=== PATIENT | female | born 1995 | race Caucasian/White ===

== ENCOUNTER 2020-01-25 06:40 | Emergency (ER) | payer BC ==
[2020-01-25] MEDS ORDERED: FAMOTIDINE 20 MG TABLET PO ONE (08:24)
[2020-01-25] MEDS ORDERED: ONDANSETRON 4 MG TAB.RAPDIS PO ONE (08:24)
--- NOTE | 2020-01-25 08:42 | ER Document Report ---
ED GI/ - General Chief Complaint: Nausea/Vomiting Stated Complaint: ABDOMINAL PAIN,VOMITING Time Seen by Provider: 01/25/20 08:17 Notes: CHIEF COMPLAINT: Nausea after taking doxycycline HPI: 24-year-old female presenting with nausea after taking doxycycline. States she developed discomfort in the upper abdomen after taking it on an empty stomach this morning with the discomfort radiating up into the chest. States she took her blood pressure at home it was elevated. No chest pain no abdominal pain at this time still with slight nausea. No shortness of breath. Patient states she had seen her CATALYST OPERATOR GASOLINE yesterday because she had been having some intermittent pelvic pain and abnormal vaginal bleeding over the last several weeks and he told her he was concerned about a pelvic infection and started her on the doxycycline. Took 1 dose last night 1 dose this morning. Did not have any issues with the dose last night. Patient does relate she did not eat prior to taking the medication today. She did not call her CATALYST OPERATOR GASOLINE about her symptoms ROS: See HPI - all other systems were reviewed and are otherwise negative Constitutional: no fever Eyes: no drainage, no blurred vision ENT: no runny nose, no sore throat Cardiovascular: + chest pain resolved Resp: no SOB, no cough GI: no vomiting, no diarrhea, + abdominal pain resolved : no dysuria Integumentary: no rash Allergy: no hives Musculoskeletal: no extremity pain or swelling Neurological: no numbness/tingling, no weakness MEDICATIONS: I agree with the patient medications as charted by the RN. ALLERGIES: I agree with the allergies as charted by the RN. PAST MEDICAL HISTORY/PAST SURGICAL HISTORY: Reviewed and agree as charted by RN. SOCIAL HISTORY: Reviewed and agree as charted by RN. FAMILY HISTORY: No significant familial comorbid conditions directly related to patient complaint EXAM: Reviewed vital signs as charted by RN. CONSTITUTIONAL: Alert and oriented and responds appropriately to questions. Well-appearing; well-nourished HEAD: Normocephalic; atraumatic EYES: PERRL; Conjunctivae clear, sclerae non-icteric ENT: normal nose; no rhinorrhea; moist mucous membranes; pharynx without lesions noted, no uvula edema or deviation, no tonsillar hypertrophy, phonation normal NECK: Supple without meningismus; non-tender; no cervical lymphadenopathy, no masses CARD: RRR; no murmurs, no clicks, no rubs, no gallops; symmetric distal pulses RESP: Normal chest excursion without splinting or tachypnea; breath sounds clear and equal bilaterally; no wheezes, no rhonchi, no rales, pulse oximetry 98% on room air not hypoxic ABD/GI: Normal bowel sounds; non-distended; soft, absolutely no tenderness on palpation over the abdomen or pelvis, no rebound, no guarding; no palpable organomegaly or masses. BACK: The back appears normal and is non-tender to palpation, there is no CVA tenderness EXT: Normal ROM in all joints; non-tender to palpation; no cyanosis, no effusions, no edema SKIN: Normal color for age and race; warm; dry; good turgor; no acute lesions noted NEURO: Moves all extremities equally; Motor and sensory function intact PSYCH: The patient's mood and manner are appropriate. Grooming and personal hygiene are appropriate. MDM: 24-year-old female intermittent abdominal pain for several weeks placed on doxycycline by her CATALYST OPERATOR GASOLINE yesterday for pelvic infection has no tenderness on exam currently. Mildly hypertensive still will discuss with the patient regarding follow-up. She is to call her CATALYST OPERATOR GASOLINE if she does not tolerate the doxycycline. - Related Data Allergies/Adverse Reactions: No Known Allergies Allergy (Unverified 01/25/20 08:40) Past Medical History - Social History Smoking Status: Never Smoker Chew tobacco use (# tins/day): No Frequency of alcohol use: None Drug Abuse: None Family History: Reviewed & Not Pertinent Patient has homicidal ideation: No Physical Exam - Vital signs Vitals: Temp Pulse Resp BP Pulse Ox 98.1 F 100 20 157/98 H 100 01/25/20 07:15 01/25/20 07:15 01/25/20 07:15 01/25/20 07:15 01/25/20 07:15 Course - Vital Signs Vital signs: Temp Pulse Resp BP Pulse Ox 98.1 F 100 20 157/98 H 100 01/25/20 07:15 01/25/20 07:15 01/25/20 07:15 01/25/20 07:15 01/25/20 07:15 Discharge - Discharge Clinical Impression: Nausea HTN (hypertension) Qualifiers: Hypertension type: unspecified Qualified Code(s): I10 - Essential (primary) hypertension Medication reaction Qualifiers: Encounter type: initial encounter Qualified Code(s): T50.905A - Adverse effect of unspecified drugs, medicaments and biological substances, initial encounter Condition: Stable Disposition: HOME, SELF-CARE Additional Instructions: Make sure you eat before you take the doxycycline. Take the Pepcid to help calm your stomach down and take Zofran for any recurrent nausea. Follow-up with your CATALYST OPERATOR GASOLINE if you find you are not tolerating the doxycycline if you develop recurrent or worsening abdominal pain. It was noted that your blood pressure was mildly elevated here today, continue to follow this, check your blood pressure twice daily and record your findings to bring to your primary care provider for reevaluation Prescriptions: Famotidine [Pepcid 20 mg Tablet] 20 mg PO BID #12 tablet Ondansetron [Zofran Odt 4 mg Tablet] 1 - 2 tab PO Q4H PRN #15 tab.rapdis PRN Reason: For Nausea/Vomiting
[2020-01-25 08:44] VITALS: BP 127/71
== END 2020-01-25 08:53 | disposition home or self-care (01) ==
LOC: ER 06:40
DX: R11.2 Nausea with vomiting, unspecified (principal); R10.9 Unspecified abdominal pain; T36.4X5A Adverse effect of tetracyclines, initial encounter; I10 Essential (primary) hypertension
CPT/HCPCS: 99283; S0119

== ENCOUNTER 2020-02-06 19:22 | Emergency (ER) | payer BC ==
[2020-02-06 19:30] VITALS: BP 150/88
[2020-02-06] MEDS ORDERED: ACETAMINOPHEN 325 MG TABLET PO ONE (20:13)
--- NOTE | 2020-02-06 20:15 | ER Document Report ---
ED Medical Screen (RME) - General Chief Complaint: Lower Abdominal Pain Stated Complaint: PAIN Time Seen by Provider: 02/06/20 20:05 Mode of Arrival: Ambulatory Information source: Patient Notes: HPI; 24-year-old female presents to the emergency room with lower pelvic pain that started today. Has been having nausea off and on for the past 2 weeks. States started after being put on doxycycline has been off the Doxy for 2 days and is still having nausea. Denies any fevers. Urinary symptoms. No diarrhea. No recent travel. No COVID-19 exposure. States she took Pepto-Bismol and Senokot without any relief. PE: Alert and oriented x3. Lungs: Clear to auscultation without rales, rhonchi, wheezes. Heart: Regular rate rhythm without murmurs, rubs, gallops. I have greeted and performed a rapid initial assessment of this patient. A comprehensive ED assessment and evaluation of the patient, analysis of test results and completion of the medical decision making process will be conducted by additional ED providers. I have specifically instructed the patient or family members with the patient to immediately return to any nursing staff should anything change in the patient's condition or with their chief complaint. TRAVEL OUTSIDE OF THE [place] IN LAST 30 DAYS: No - Related Data Allergies/Adverse Reactions: No Known Allergies Allergy (Unverified 01/25/20 08:40) Physical Exam - Vital signs Vitals: Temp Pulse Resp BP Pulse Ox 98.7 F 100 20 150/88 H 98 02/06/20 19:29 02/06/20 19:29 02/06/20 19:29 02/06/20 19:29 02/06/20 19: Course - Vital Signs Vital signs: Temp Pulse Resp BP Pulse Ox 98.7 F 100 20 150/88 H 98 02/06/20 19:29 02/06/20 19:29 02/06/20 19:29 02/06/20 19:02/06/20 19:
[2020-02-06 20:41] LABS: ABSOLUTE BASOPHILS # (AUTO) 0.1 10^3/uL (0.0-0.2); ABSOLUTE EOSINOPHILS # (AUTO) 0.3 10^3/uL (0.0-0.6); ABSOLUTE LYMPHOCYTES (AUTO) 4.3 10^3/uL (0.5-4.7); ABSOLUTE MONOCYTES (AUTO) 1.5 10^3/uL (0.1-1.4); ABSOLUTE NEUT (AUTO) 10.5 10^3/uL (1.7-8.2); BASOPHILS % (AUTO) 0.6 % (0-2); EOSINOPHILS % (AUTO) 1.8 % (0-6); HEMATOCRIT 40.8 % (36.0-47.0); HEMOGLOBIN 14.2 g/dL (12.0-15.5); LYMPHOCYTES % (AUTO) 25.7 % (13-45); MEAN CORPUSCULAR HGB CONC 34.9 g/dL (32.0-36.0); MEAN CORPUSCULAR VOLUME 77 fl (80-97); MONOCYTES % (AUTO) 8.9 % (3-13); PLATELET COUNT 361 10^3/uL (150-450); RED BLOOD COUNT 5.26 10^6/uL (3.72-5.28); RED CELL DISTRIBUTION WIDTH 14.7 % (11.5-14.0); TOTAL CELLS COUNTED % (AUTO) 100 %; WHITE BLOOD COUNT 16.6 10^3/uL (4.0-10.5)
[2020-02-06 20:57] LABS: APPEARANCE,URINE CLOUDY; BILIRUBIN,URINE NEGATIVE (NEGATIVE); COLOR,URINE YELLOW; GLUCOSE, URINE NEGATIVE (NEGATIVE); KETONES,URINE NEGATIVE (NEGATIVE); LEUKOCYTE ESTERASE,URINE MODERATE (NEGATIVE); NITRITE,URINE NEGATIVE (NEGATIVE); PROTEIN,URINE NEGATIVE (NEGATIVE); URINE SPECIFIC GRAVITY 1.023; UROBILINOGEN,URINE NEGATIVE mg/dL (<2.0)
[2020-02-06 21:03] LABS: ALBUMIN 4.3 g/dL (3.5-5.0); ALKALINE PHOSPHATASE 55 U/L (38-126); ANION GAP 13 (5-19); ASPARTATE AMINO TRANSFERASE 20 U/L (14-36); BILIRUBIN,DIRECT 0.2 mg/dL (0.0-0.4); BILIRUBIN,TOTAL 0.5 mg/dL (0.2-1.3); BLOOD UREA NITROGEN 16 mg/dL (7-20); CALCIUM 9.3 mg/dL (8.4-10.2); CARBON DIOXIDE 23 mmol/L (22-30); CHLORIDE 100 mmol/L (98-107); GLUCOSE 100 mg/dL (75-110); POTASSIUM 4.3 mmol/L (3.6-5.0); TOTAL PROTEIN 7.2 g/dL (6.3-8.2)
--- NOTE | 2020-02-06 21:11 | RADIOLOGY REPORT (SQ) ---
EXAM DESCRIPTION: [facility]: US PELVIS TRANSVAGINAL CLINICAL HISTORY: 24 years Female; pelvic pain; TECHNIQUE: Endovaginal pelvic ultrasound was performed. COMPARISON: None. FINDINGS: Uterus: 6.3 x 3.6 x 2.5 cm, with 4 mm endometrial stripe. No uterine masses. Cervix 1.7 cm long. Right ovary: 4 x 3.4 x 2.5 cm. Multiple follicles, at least 20. Normal vascular flow on Doppler. Left ovary: 2.9 x 3.1 x 2.3 cm. Multiple follicles, at least 20. Normal vascular flow on Doppler. No free fluid. No adnexal masses. IMPRESSION: 1. No acute findings. 2. No ovarian mass or torsion 3. Polycystic ovaries, with at least 20 follicles in each ovary.
[2020-02-07] MEDS ORDERED: CEPHALEXIN 500 MG CAPSULE PO ONE (07:04)
--- NOTE | 2020-02-07 07:05 | ER Document Report ---
HPI - HPI Time Seen by Provider: 02/06/20 20:05 Pain Level: Denies Notes: Otherwise healthy 24-year-old female presenting to the emergency department with lower abdominal pain. She reports pain has been intermittent for the last 2 weeks with accompanied nausea. She denies any fever, chills, vomiting or diarrhea. She does report recently completing a course of doxycycline for what she states her PSYCHOLOGICAL ASSISTANT diagnosed her with ovarian cyst. - ROS Systems Reviewed and Negative: Yes All other systems reviewed and negative - GASTROINTESTINAL Gastrointestinal: REPORTS: Abdominal Pain, Nausea - REPRODUCTIVE Reproductive: DENIES: : Past Medical History - General Information source: Patient - Social History Smoking Status: Never Smoker Chew tobacco use (# tins/day): No Frequency of alcohol use: None Drug Abuse: None Family History: Reviewed & Not Pertinent Patient has homicidal ideation: No Renal/ Medical History: Reports: Hx Ovarian Cysts Vertical Provider Document - CONSTITUTIONAL Notes: PHYSICAL EXAMINATION: GENERAL: Well-appearing, well-nourished and in no acute distress. HEAD: Atraumatic, normocephalic. EYES: Pupils equal round and reactive to light, extraocular movements intact, conjunctiva are normal. ENT: Nares patent, oropharynx clear without exudates. Moist mucous membranes. NECK: Normal range of motion, supple without lymphadenopathy LUNGS: Breath sounds clear to auscultation bilaterally and equal. No wheezes rales or rhonchi. HEART: Regular rate and rhythm without murmurs ABDOMEN: Soft, nontender, nondistended abdomen. No guarding, no rebound. No masses appreciated. Female : No CVA tenderness Musculoskeletal: Normal range of motion, no pitting or edema. No cyanosis. NEUROLOGICAL: Cranial nerves grossly intact. Normal speech, normal gait. Normal sensory, motor exams PSYCH: Normal mood, normal affect. SKIN: Warm, Dry, normal turgor, no rashes or lesions noted. - INFECTION CONTROL TRAVEL OUTSIDE OF THE [place] IN LAST 30 DAYS: No Course - Re-evaluation Re-evalutation: Patient appears well, nontoxic. Vital signs reviewed and are within normal limits. Abdomen is soft and nontender. Patient does have a leukocytosis of 16,000 However she has not had fever or chills. She does have a urinary tract infection noted on the urinalysis although she did recently complete a course of doxycycline. We will start her on a course of cephalexin. She will follow-up with her PSYCHOLOGICAL ASSISTANT. I have instructed her to call them this week. Strict ED return precautions were discussed, patient verbalized understanding and agreement with same. Transvaginal US 02/06/20 20:12 IMPRESSION: 1. No acute findings. 2. No ovarian mass or torsion 3. Polycystic ovaries, with at least 20 follicles in each ovary. Laboratory 02/06/20 02/06/20 02/06/20 20:20 20:20 20:20 WBC 16.6 H RBC 5.26 Hgb 14.2 Hct 40.8 MCV 77 L MCH 27.0 MCHC 34.9 RDW 14.7 H Plt Count 361 Lymph % (Auto) 25.7 O'Brien % (Auto) 8.9 Eos % (Auto) 1.8 Baso % (Auto) 0.6 Absolute Neuts (auto) 10.5 H Absolute Lymphs (auto) 4.3 Absolute Monos (auto) 1.5 H Absolute Eos (auto) 0.3 Absolute Basos (auto) 0.1 Seg Neutrophils % 63.0 Sodium 135.6 L Potassium 4.3 Chloride 100 Carbon Dioxide 23 Anion Gap 13 BUN 16 Creatinine 0.72 Est GFR ( Amer) > 60 Est GFR (MDRD) Non-Af > 60 Glucose 100 Calcium 9.3 Total Bilirubin 0.5 Direct Bilirubin 0.2 Neonat Total Bilirubin Not Reportable Neonat Direct Bilirubin Not Reportable Neonat Indirect Bili Not Reportable AST 20 ALT 30 Alkaline Phosphatase 55 Total Protein 7.2 Albumin 4.3 Lipase 86.2 Serum HCG, Qual NEGATIVE Urine Color Urine Appearance Urine pH Ur Specific Marcus Urine Protein Urine Glucose (UA) Urine Ketones Urine Blood Urine Nitrite Urine Bilirubin Urine Urobilinogen Ur Leukocyte Esterase Urine WBC (Auto) Squamous Epi Cells Auto Urine Ascorbic Acid 02/06/20 20:20 WBC RBC Hgb Hct MCV MCH MCHC RDW Plt Count Lymph % (Auto) O'Brien % (Auto) Eos % (Auto) Baso % (Auto) Absolute Neuts (auto) Absolute Lymphs (auto) Absolute Monos (auto) Absolute Eos (auto) Absolute Basos (auto) Seg Neutrophils % Sodium Potassium Chloride Carbon Dioxide Anion Gap BUN Creatinine Est GFR ( Amer) Est GFR (MDRD) Non-Af Glucose Calcium Total Bilirubin Direct Bilirubin Neonat Total Bilirubin Neonat Direct Bilirubin Neonat Indirect Bili AST ALT Alkaline Phosphatase Total Protein Albumin Lipase Serum HCG, Qual Urine Color YELLOW Urine Appearance CLOUDY Urine pH 5.0 Ur Specific Marcus 1.023 Urine Protein NEGATIVE Urine Glucose (UA) NEGATIVE Urine Ketones NEGATIVE Urine Blood SMALL H Urine Nitrite NEGATIVE Urine Bilirubin NEGATIVE Urine Urobilinogen NEGATIVE Ur Leukocyte Esterase MODERATE H Urine WBC (Auto) 1 Squamous Epi Cells Auto 1 Urine Ascorbic Acid NEGATIVE - Vital Signs Vital signs: Temp Pulse Resp BP Pulse Ox 98.7 F 100 20 150/88 H 98 02/06/20 19:29 02/06/20 19:29 02/06/20 19:29 02/06/20 19:29 02/06/20 19:29 - Laboratory Result Diagrams: 02/06/20 20:20 02/06/20 20:20 Laboratory results interpreted by me: 02/06/20 02/06/20 02/06/20 20:20 20:20 20:20 WBC 16.6 H MCV 77 L RDW 14.7 H Absolute Neuts (auto) 10.5 H Absolute Monos (auto) 1.5 H Sodium 135.6 L Urine Blood SMALL H Ur Leukocyte Esterase MODERATE H Discharge - Discharge Clinical Impression: Urinary tract infection Qualifiers: Urinary tract infection type: site unspecified Hematuria presence: without hematuria Qualified Code(s): N39.0 - Urinary tract infection, site not specified Condition: Stable Disposition: HOME, SELF-CARE Additional Instructions: Your urine shows findings consistent with a urinary tract infection. Please take all the antibiotics as directed even if your symptoms have improved. Please follow-up with your primary care physician as needed. Return to emergency room if you develop fever >101F, persistent vomiting, become le thargic, have severe pain in your sides, or any other symptoms that are concerning to you. Prescriptions: Cephalexin [Keflex] 500 mg PO BID #14 capsule Forms: Return to Work
== END 2020-02-07 07:19 | disposition home or self-care (01) ==
LOC: ER 19:22
DX: N39.0 Urinary tract infection, site not specified (principal); E28.2 Polycystic ovarian syndrome; R11.0 Nausea; R10.2 Pelvic and perineal pain
CPT/HCPCS: 36415; 76830; 80053; 81001; 83690; 84703; 85025; 87086; 93976; 99285